=== PATIENT | male | born 1965 | race Caucasian/White ===

== ENCOUNTER 2022-11-29 09:18 | Outpatient (REF) | payer OTHER, SELFPAY ==
[2022-11-29 11:51] LABS: Estimated Average Glucose 123 mg/dL; Hemoglobin A1c % 5.9 %
[2022-11-29 12:47] LABS: Cholesterol 226 mg/dL; HDL Cholesterol 43 mg/dL; LDL Cholesterol Calculated 166 mg/dl; Triglycerides 89 mg/dL
== END 2022-11-29 09:19 | disposition home or self-care (01) ==
LOC: HO.HHCL 09:18
PROVIDERS: Visit Provider Internal Medicine Geriatric Medicine
DX: Z12.11 Encounter for screening for malignant neoplasm of colon (principal); Z12.5 Encounter for screening for malignant neoplasm of prostate; Z13.220 Encounter for screening for lipoid disorders; R07.9 Chest pain, unspecified; E66.9 Obesity, unspecified
CPT/HCPCS: 36415; 80061; 83036; 84153

== ENCOUNTER 2023-03-22 12:29 | Outpatient (REF) | payer OTHER, SELFPAY ==
[2023-03-22 13:13] LABS: MANUAL DIFF FLAG NO
[2023-03-22 13:26] LABS: Basophils Absolute Auto 0.1 X10*3/uL (0.0-0.2); Basophils Percent Auto 0.9 % (0-2); Eosinophils Absolute Auto 0.2 X10*3/uL (0.0-0.4); Eosinophils Percent Auto 3.4 % (0-4); Hematocrit 44.5 % (42.0-52.0); Hemoglobin 13.7 g/dl (14.0-18.0); Imm Gran Abs Auto 0.01 X10*3/uL (0.00-0.03); Imm Gran Pct Auto 0.2 % (0.0-0.4); Lymphocytes Absolute Auto 2.3 X10*3/uL (1.2-4.9); Lymphocytes Percent Auto 35.1 % (20-40); Mean Corpuscular HGB Conc 30.8 g/dl (31.0-36.0); Mean Corpuscular Volume 81.1 fL (80.0-98.0); Monocytes Absolute Auto 0.5 X10*3/uL (0.1-1.2); Monocytes Percent Auto 7.8 % (2-11); Neutrophils Absolute Auto 3.4 x10*3/uL (2.0-8.3); Neutrophils Percent Auto 52.6 % (45-73); Platelet Count 238 X10*3/uL (160-400); Red Blood Count 5.49 X10*6/uL (4.60-5.80); Red Cell Distribution Width 15.7 % (11.0-16.0); White Blood Count 6.5 X10*3/uL (4.8-10.8)
[2023-03-22 14:04] LABS: Alanine Aminotransferase 22 U/L (0-40); Alkaline Phosphatase 84 U/L (39-117); Anion Gap 11 (12-20); Aspartate Amino Transferase 23 U/L (5-37); Bilirubin Total 0.5 mg/dL (0.0-1.0); Blood Urea Nitrogen 15 mg/dL (9-16); Calcium 9.1 mg/dL (8.4-10.2); Carbon Dioxide 25 mmol/L (22-29); Chloride 107 mmol/L (96-108); Estimated Glomerular Filt Rate > 60; Glucose Random 102 mg/dL (60-115); Potassium 4.9 mmol/L (3.3-5.1); Sodium 138 mmol/L (135-145); Total Protein 7.1 g/dL (6.5-8.0)
== END 2023-03-22 12:30 | disposition home or self-care (01) ==
LOC: HO.HHCL 12:29
PROVIDERS: Visit Provider Internal Medicine Geriatric Medicine
DX: Z79.1 Long term (current) use of non-steroidal anti-inflammatories (NSAID) (principal)
CPT/HCPCS: 36415; 80053; 85025

== ENCOUNTER 2023-09-28 13:24 | Outpatient (REF) | payer OTHER, SELFPAY ==
[2023-09-28 16:35] LABS: Cholesterol 177 mg/dL (<200); HDL Cholesterol 42 mg/dL (>40); LDL Cholesterol Calculated 120 mg/dL (<100); Triglycerides 75 mg/dL (<150)
== END 2023-09-28 13:25 | disposition home or self-care (01) ==
LOC: HO.HHCL 13:24
PROVIDERS: Visit Provider Internal Medicine Geriatric Medicine
DX: E78.00 Pure hypercholesterolemia, unspecified (principal)
CPT/HCPCS: 36415; 80061

== ENCOUNTER 2023-11-30 10:26 | Outpatient (REF) | payer OTHER, SELFPAY ==
[2023-11-30 13:07] LABS: MANUAL DIFF FLAG NO
[2023-11-30 13:20] LABS: Basophils Percent Auto 0.7 % (0-2); Eosinophils Absolute Auto 0.1 X10*3/uL (0.0-0.4); Eosinophils Percent Auto 2.3 % (0-4); Hematocrit 46.4 % (42.0-52.0); Hemoglobin 14.5 g/dl (14.0-18.0); Imm Gran Abs Auto 0.01 X10*3/uL (0.00-0.03); Imm Gran Pct Auto 0.2 % (0.0-0.4); Lymphocytes Absolute Auto 1.8 X10*3/uL (1.2-4.9); Lymphocytes Percent Auto 29.2 % (20-40); Mean Corpuscular HGB Conc 31.3 g/dl (31.0-36.0); Mean Corpuscular Hemoglobin 25.3 pg (27.0-33.0); Mean Corpuscular Volume 80.8 fL (80.0-98.0); Mean Platelet Volume 10.6 fL (9.4-12.4); Monocytes Absolute Auto 0.4 X10*3/uL (0.1-1.2); Monocytes Percent Auto 7.3 % (2-11); Neutrophils Absolute Auto 3.6 x10*3/uL (2.0-8.3); Neutrophils Percent Auto 60.3 % (45-73); Platelet Count 272 X10*3/uL (160-400); Red Blood Count 5.74 X10*6/uL (4.60-5.80)
[2023-11-30 20:54] LABS: Anion Gap 14 (12-20); Blood Urea Nitrogen 16 mg/dL (9-16); Calcium 9.4 mg/dL (8.4-10.2); Carbon Dioxide 24 mmol/L (22-29); Chloride 108 mmol/L (96-108); Estimated Glomerular Filt Rate > 60; Glucose Random 100 mg/dL (60-115); Potassium 4.7 mmol/L (3.3-5.1); Sodium 141 mmol/L (135-145)
[2023-12-01 02:02] LABS: Prostate Specific Antigen 0.66 ng/mL (<0.05-4.0)
[2023-12-01 03:58] LABS: HIV AB/AG Nonreactive (Nonreactive); HIV Num 1 0.06 S/CO (0.00-0.99); ~HepC Num1 0.13 S/CO (0.00-0.79); ~Hepatitis C Antibody Nonreactive (Nonreactive)
== END 2023-11-30 10:27 | disposition home or self-care (01) ==
LOC: HO.HMGCLDS 10:26
PROVIDERS: Visit Provider Internal Medicine Geriatric Medicine
DX: Z11.4 Encounter for screening for human immunodeficiency virus [HIV] (principal); Z11.59 Encounter for screening for other viral diseases; Z12.5 Encounter for screening for malignant neoplasm of prostate; Z79.1 Long term (current) use of non-steroidal anti-inflammatories (NSAID)
CPT/HCPCS: 36415; 80048; 84153; 85025; 86803; 87389

== ENCOUNTER 2024-07-25 13:25 | Outpatient (REF) | payer OTHER, SELFPAY ==
--- OUTSIDE RECORDS SUMMARY | 2024-07-25 15:01 | XMS_ITS | Encounter Summary ---
Author Organization [employer] Address 75 [facility] 7t [place] [address] Care Team Providers Care Dining Room Server Name Role Phone Name, Oumar PÉREZ Primary Care Provider [phone] Encounter Details Date Type Department Care Team (Latest Contact Info) Description 08/12/2020 Abstract [facility] CONVERSIONS Dental, Provider, DDS Social History Tobacco Use Types Packs/Day Years Used Date Smoking Tobacco: Never Assessed Sex and Gender Information Value Date Recorded Sex Assigned at Male 03/13/2022 10:15 AM EDT Legal Sex Male 10:15 AM EDT Gender Identity Male 03/13/2022 10:15 AM EDT Sexual Orientation Straight 03/13/2022 10 :15 AM EDT documented as of this encounter Plan of Treatment Upcoming Encounters Date Type Department Care Team (Late st Contact Info) Description 07/30/2024 11:30 AM EDT Office Visit [facility] MEDICINE [address] [place] [address] NameOumar MD [address] [place] [address] 10/20/2024 11:00 AM EDT Office Visit [facility] ADULT DENTAL [address] [place] [address] Sheila Resendiz [address] [place] [address] documented as of this encounter Visit Diagnoses Not on filedocumented in this encounter Care Teams Dining Room Server Relationship Specialty Start Date End Date Name, MD Oumar [address] [place] [address] PCP - General Family Medicine 06/18/17 documented as of this encounter
--- OUTSIDE RECORDS SUMMARY | 2024-07-25 15:01 | XMS_ITS | Encounter Summary ---
Author Organization [employer] Address [address] [facility] 7t [place] [address] Care Team Providers Care Naphthalene Operator Name Role Phone Name, Oumar PÉREZ Primary Care Provider [phone] Encounter Details Date Type Department Care Team (Late st Contact Info) Description 12/26/2022 Abstract [facility] MEDICINE [address] [place] [address] [phone] NameOumar MD [address] [place] [address] [phone] Social History Tobacco Use Types Packs/Day Years Used Date Smoking Tobacco: Never Passive Smoke Exposure: Never Smokeless Tobacco: Never Alcohol Use Standard Drinks/Week Comments Yes 0 (1 standard drink = 0.6 oz pur e alcohol) occassional Depression Answer Date Recorded Patient Health Questionnaire-9 Score 13 11/29/2022 Depression Answer Date Recorded Patient Health Questionnaire-2 Score 6 11/29/2022 Sex and Gender Information Value Date Recorded Sex Assigned at Male 03/13/2022 10:15 AM EDT Legal Sex Male 10:15 AM EDT Gender Identity Male 03/13/2022 10:15 AM EDT Sexual Orientation Straight 03/13/2022 10 :15 AM EDT documented as of this encounter Plan of Treatment Upcoming Encounters Date Type Department Care Team (Late st Contact Info) Description 07/30/2024 11:30 AM EDT Office Visit [facility] MEDICINE [address] [place] [address] [phone] Name, MD Oumar [address] [place] [address] [phone] 10/20/2024 11:00 AM EDT Office Visit [facility] ADULT DENTAL [address] [place] [address] Sheila Resendiz [address] [place] [address] documented as of this encounter Visit Diagnoses Not on filedocumented in this encounter Additional Health Concerns Assessment Noted Time PHQ-9 Depression Total Score: 13 023 8:42 AM EDT documented as of this encounter Care Teams Naphthalene Operator Relationship Specialty Start Date End Date Name, MD Oumar [address] [place] [address] PCP - General Family Medicine 06/18/17 documented as of this encounter
--- OUTSIDE RECORDS SUMMARY | 2024-07-25 15:01 | XMS_ITS | Encounter Summary ---
Author Organization [employer] Address 75 [facility] 7t [place] [address] Care Team Providers Care Patient Safety Coordinator Name Role Phone Name, Oumar PÉREZ Primary Care Provider [phone] Reason for Referral * Imaging (Routine) - Authorized Specialty Diagnoses / Procedures Referred By Contac t Referred To Contact Radiology Diagnoses Umbilical bleeding Procedures US Abdomen Limited Ban Durand ANP [address] [place] [address] Phone: tel: fax: [address] Phone: tel: fax: Referral ID Status Reason Start Date Expiration Date V isits Requested Visits Authorized [id number] Authorized 07/25/2024 07/25/2025 1 1 Reason for Visit * Reason Comments belly button bleeding Encounter Details Date Type Department Care Team (Late st Contact Info) Description 07/25/2024 1:00 PM EDT Office Visit [facility] [address] [place], [place] [phone] Umbilical bleeding (Primary Dx) Social History Tobacco Use Types Packs/Day Years Used Date Smoking Tobacco: Never Passive Smoke Exposure: Never Smokeless Tobacco: Never Alcohol Use Standard Drinks/Week Comments Yes 0 (1 standard drink = 0.6 oz pur e alcohol) occassional Depression Answer Date Recorded Patient Health Questionnaire-9 Score 0 2023 Patient Health Questionnaire-9 Score 0 2023 Last PHQ-9: Questionnaire Data Not on file 0 2023 Housing Stability Answer Date Recorded What is your housing situation today? I have pelon lozano 03/21/[address] you li ve. Do you have problems with any of the following? None of the above 03/21/2023 Food Insecurity Answer Date Recorded Within the past 12 months, y ou worried that your food would run out before you got money to buy more: Never True 03/21/2023 Within the past 12 months,th e food you bought just didn't last and you didn't have enough money to get more: Never True 12/2022 Transportation Answer Date Recorded In the past 12 months, has l ack of transportation kept you from medical appts, meetings, work or from getting things needed for daily living? No 03/21/2023 Utilities Answer Date Recorded In the past 12 months, has t he electric, gas, oil or water company threatened to shut off services in your home? No 03/21/2023 Depression Answer Date Recorded Patient Health Questionnaire-2 Score 0 2023 Internet Access Answer Date Recorded Internet Access Q1 Yes 01/14/2024 Internet Access Q2 Not on file 01/14/2024 Sex and Gender Information Value Date Recorded Sex Assigned at Male 03/13/2022 10:15 AM EDT Legal Sex Male 10:15 AM EDT Gender Identity Male 03/13/2022 10:15 AM EDT Sexual Orientation Straight 03/13/2022 10 :15 AM EDT documented as of this encounter Last Filed Vital Signs Vital Sign Reading Time Taken Comments Blood Pressure 136/87 07/25/2024 1:01 PM EDT Pulse 58 07/25/2024 1:01 PM EDT Temperature 36.7 ??C (98.1 ??F) 07/25/2024 1:01 PM ED T Respiratory Rate 17 07/25/2024 1:01 PM EDT Oxygen Saturation 98% 07/25/2024 1:01 PM EDT Inhaled Oxygen Concentration - - Weight 121 kg (266 lb 3.2 oz) 07/25/2024 1:01 PM EDT Height - - Body Mass Index 41.69 01/01/2024 10:41 AM EDT documented in this encounter Plan of Treatment Upcoming Encounters Date Type Department Care Team (Late st Contact Info) Description 07/30/2024 11:30 AM EDT Office Visit [facility] MEDICINE [address] [place] [address] Name, MD Oumar [address] [facility] [place] [address] 10/20/2024 11:00 AM EDT Office Visit [facility] ADULT DENTAL [address] [place] [address] MartínSheila rodrigez [address] [place] [address] Scheduled Orders Name Type Priority Associated Diagnoses Orde r Schedule Prothrombin Time-INR Lab Routine Umbilical bleeding Expected: 07/25/2024, Expires: 07/25/2025 Hepatic Function Panel Lab Routine Umbilical bleeding Expected: 07/25/2024 (Approximate), Expires: 07/25/2025 Basic Metabolic Panel Lab Routine Umbilical bleeding Expected: 07/25/2024 (Approximate), Expires: 07/25/2025 US Abdomen Limited Imaging Routine Umbilical bleeding Expected: 07/25/2024, Expires: 07/25/2025 CBC auto differential Lab Routine Umbilical bleeding Expected: 07/25/2024 (Approximate), Expires: 07/25/2025 documented as of this encounter Visit Diagnoses Diagnosis Umbilical bleeding- Primary Other symptoms involving abdomen and pelvis documented in this encounter Additional Health Concerns Assessment Noted Time PHQ-9 Depression Total Score: 0 08/29/19 24 11:17 AM EDT documented as of this encounter Care Teams Patient Safety Coordinator Relationship Specialty Start Date End Date Name, MD Oumar [address] [place] [address] PCP - General Family Medicine 06/18/17 documented as of this encounter
--- OUTSIDE RECORDS SUMMARY | 2024-07-25 15:01 | XMS_ITS | Clinical Summary ---
Author Organization [employer] Address 75 [facility] 7t [place] [address] Care Team Providers Care Wool Grower Name Role Phone Name, Oumar PÉREZ Primary Care Provider [phone] Allergies No known active allergies Medications amoxicillin (Amoxil) 500 MG capsule TAKE 4 CAPSULES BY MOUTH 1 HOUR BEFORE PROCEDURE 2 Active fluticasone (Flonase) 50 MCG/ACT nasal sprayIndication s:Acute non-recurrent maxillary sinusitis Administer 1 spray into each nostril Once per day. 16 g 2 4 Active Active Problems Problem Noted Date Diagnosed Date Dental calculus 04/21/2024 Acute non-recurrent maxillary sinusitis 01/01/20 24 Assessment & Plan (01/01/2024 12:20 PM EDT): Drink plenty of fluids and rest History of right hip replacement 2023 Overview (2023): 09/[address] Grey Osteoarthritis of right hip 01/11/2018 Osteoarthritis of knee 01/11/2018 Knee pain 01/08/2018 Chorioretinal scar 10/03/2017 Meibomian gland dysfunction (MGD) of both eyes 0 10/03/2017 Obesity (BMI 30-39.9) 07/13/2017 Resolved Problems Problem Noted Date Diagnosed Date Resolved Date Hip pain 01/08/2018 2023 Encounters Date Type Department Care Team Description 07/25/2024 1:00 PM EDT Office Visit [facility] [address] [place], [place] [phone] Umbilical bleeding (Primary Dx) 07/25/2024 Travel 05/19/2024 Telephone [facility] MEDICINE [address] [place] [address] Mason Tariq [place] july recalls 05/12/2024 Telephone [facility] MED[facility] [address] [place] [address] Mason Tariq [place] jun recalls from Last 3 Months Immunizations Name Administration Dates Next Due Influenza Injectable Quadriv alant Preservative Free IIV4 MDCK 02/06/2023,01/26/2022,01/27/2021,2019 Influenza injectable quadriv alent IIV4 with preservative 01/23/2018 Influenza, seasonal, injecta ble, preservative free 01/23/2024 Tdap 01/19/2023 Social History Tobacco Use Types Packs/Day Years Used Date Smoking Tobacco: Never Passive Smoke Exposure: Never Smokeless Tobacco: Never Tobacco Cessation:Counseling Given: Not Answered Alcohol Use Standard Drinks/Week Comments Yes 0 (1 standard drink = 0.6 oz pur e alcohol) occassional Depression Answer Date Recorded Patient Health Questionnaire-9 Score 0 2023 Patient Health Questionnaire-9 Score 0 2023 Last PHQ-9: Questionnaire Data Not on file 0 2023 Housing Stability Answer Date Recorded What is your housing situation today? I have pelonchristian lozano 03/21/[address] you [...] Orientation Straight 03/13/2022 10 :15 AM EDT Last Filed Vital Signs Vital Sign Reading [...] 3.2 oz) 07/25/2024 1:01 PM EDT Height 170.2 cm (5' 7 ) 01/01/2024 10:41 AM EDT Body Mass Index 41.69 01/01/2024 10:41 AM EDT Plan of Treatment Upcoming Encounters Date Type Department Care Team (Late st Contact Info) Description 07/30/2024 11:30 AM EDT Office Visit [facility] MEDICINE [address] [place] [phone] Name, MD Oumar [address] [place] [address] 10/20/2024 11:00 AM EDT Office Visit [facility] ADULT DENTAL [address] [place] [address] Sheila Resendiz [address] [place] [address] Health Maintenance Due Date Last Done Comments CT Colonography 1963 Colonoscopy 1963 Dental X-Ray: Full Mouth 1963 FIT 1963 Sigmoidoscopy 1965 Pneumococcal Vaccine: 50+ Years (1 of 1 - PCV) 08/28/2013 Zoster Vaccines (1 of 2) 08/28/2013 Dental Oral Exam 02/12/2021 08/12/2020 Dental X-Ray: Bitewings 08/13/2021 08/12/2020 Dental Prophylaxis 09/13/2022 03/15/2022, 0 08/12/2020, 08/15/2018, Additional history exists RSV Patients and Patients Aged 60 years or older (1 - Risk 60-74 years 1-dose series) 2023 FOBT 12/15/2023 12/14/2022 COVID-19 Vaccine ( season) 2024 04/04/2021, 06/08/2020, 05/11/2020 Depression Screening 08/28/2024 2023, 08/29/19 SDOH Screening 11/22/2024 11/23/2023 Alcohol/Substance Use Screening 11/29/2024 11/30/2023 Tobacco Screening 07/25/2025 07/25/2024 Colorectal Cancer Screening 12/14/2025 FIT DNA/Cologuard 12/14/2025 12/14/2022 Lipid Panel 09/27/2028 09/28/2023, 11/29/2022 DTaP/Tdap/Td Vaccines (2 - Td or Tdap) 01/19/2033 01/19/2023 HIV Screening Completed 11/30/2023 Hepatitis C Screening Completed 11/30/2023 Influenza Vaccine Completed 01/23/2024, , 01/26/2022, Additional history exists HIB Vaccines Aged Out No longer eligi ble based on patient's age to complete this topic HPV Vaccines Aged Out No longer eligi ble based on patient's age to complete this topic Hepatitis A Vaccines Aged Out No long er eligible based on patient's age to complete this topic Hepatitis B Vaccines Aged Out No long er eligible based on patient's age to complete this topic IPV Vaccines Aged Out No longer eligi ble based on patient's age to complete this topic Meningococcal Vaccine Aged Out No shonda nellie eligible based on patient's age to complete this topic RSV under 20 months Aged Out No longe r eligible based on patient's age to complete this topic Rotavirus Vaccines Aged Out No longer eligible based on patient's age to complete this topic Procedures Procedure Name Priority Date/Time Associated Diagnosis Comments HEPATITIS C AB W/REFL TO HCV RNA, QN, PCR Routine 11/30/2023 10:29 AM EDT Need for hepatitis C screening test HIV 1/2 ANTIGEN/ANTIBODY, FOURTH GENERATION W/RFL Routine 11/30/2023 10:29 AM EDT Screening for HIV (human immunodeficiency virus) LIPID PANEL, STANDARD Routine 09/28/2023 1:15 PM EDT High cholesterol HM FIT DNA/COLOGUARD CANCER SCREENING Routine 12/14/2022 PROPHYLAXIS - ADULT Routine 03/15/2022 1 2:00 AM EDT BITEWINGS - 3 RADIOGRAPHIC IMAGES Routine 08/12/2020 12:00 AM EDT PERIODIC ORAL EVALUATION - ESTABLISHED PATIENT Routine 08/12/2020 12:00 AM EDT from Last 3 Months or Most Recently Relevant to Health Maintenance Results * Hepatitis C Antibody with Reflex to HCV, RNA, Quantitative, Real-Time PCR (11/30/2023 10:29 AM EDT) Hepatitis C Antibody Nonreactive Nonreactive [facility] Comment:Antibodies to HCV no t detected; does not exclude early acuteHCV infection. Blood Venous blood specimen / Unknown 11/30/2023 10:29 AM EDT 11/30/2023 1:01 PM EDT Oumar Blas MD LAB BLOOD ORDERABLES Final Resul t [facility] [address] [place] [phone] * HIV-1/2 Antigen and Antibodies, Fourth Generation, with Reflexes (11/30/2023 10:29 AM EDT) HIV AB/AG Nonreactive Nonreactive [facility] Comment:HIV-1 p24 Ag and/or HIV-1/HIV-2 Ab not detected.A test result that is nonreactive does not exclude thepossibility of exposure to or infection with HIV-1 and/orHIV-2. Nonreactive results in this assay for individualswith prior exposure to HIV-1 and/or HIV-2 may be due toantigen and antibody levels that are below the limit ofdetection of this assay.The [employer] HIV Ag/Ab Combo assay result andsupplemental assay results should be interpreted inconjunction with the patient's clinical presentation,history and other laboratory results. If the results areinconsistent with clinical evidence, additional testing issuggested to confirm the result. Blood Venous blood specimen / Unknown 11/30/2023 10:29 AM EDT 11/30/2023 1:01 PM EDT us Oumar Blas MD LAB BLOOD ORDERABLES Final Resul t [facility] [address] [place] [phone] * (ABNORMAL) Lipid Panel, Standard (09/28/2023 1:15 PM EDT) Triglycerides 75 <150 mg/dL [facility] Comment:Desirable Triglyceri de: less than 150 mg/dLBorderline High Triglyceride 150-199 mg/dLHigh Triglyceride: 200-499 mg/dLVery High Triglyceride: greater than or equal to 5OO mg/dL Cholesterol 177 <200 mg/dL [facility] Comment:Desirable Cholestero l: less than 200 mg/dLBorderline High Cholesterol: 200-239 mg/dLHigh Cholesterol: greater than 239 mg/dL LDL Cholesterol Calculated 120(H) <100 mg/dL [facility] Comment:Desirable LDL: less than 100 mg/dLNear Optimal/Above Optimal LDL: 110- 129 mg/dLBorderline High LDL: 130-159 mg/dLHigh LDL: 160-189 mg/dLVery High LDL: greater than or equal to 190 mg/dL HDL Cholesterol 42 >40 mg/dL [facility] Comment:Desirable HDL: great er than 40 mg/dL Note: This HDL assay may give artificially low results in patients with liver disease. Blood Venous blood specimen / Unknown 09/28/2023 1:15 PM EDT 09/28/2023 4:07 PM EDT us Oumar Blas MD LAB BLOOD ORDERABLES Final Resul t [facility] [address] [place] [phone] * FIT DNA/Cologuard Cancer Screening (12/14/2022) Cologuard Cancer Screen Negative Stool Oumar Blas MD HEALTH MAINTENANCE Final Result from Last 3 Months or Most Recently Relevant to Health Maintenance Insurance [facility] , [address] [place] [address] Care Teams Wool Grower Relationship Specialty Start Date End Date Name, MD Oumar [address] [facility] [place] [address] PCP - General Family Medicine 06/18/17
--- OUTSIDE RECORDS SUMMARY | 2024-07-25 15:01 | XMS_ITS | Encounter Summary ---
Author Organization [employer] Address [address] [facility] 7t [place] [address] Care Team Providers Care Stock Speculator Name Role Phone Name, Oumar PÉREZ Primary Care Provider [phone] Encounter Details Date Type Department Care Team (Latest Contact Info) Description 07/25/2024 Travel Social History Tobacco Use Types Packs/Day Years [...] Description 07/30/2024 11:30 AM EDT Office Visit [facility] MEDICINE [address] [place] [address] Name, MD Oumar [address] [place] [address] 10/20/2024 11:00 AM EDT Office Visit [facility] ADULT DENTAL [address] [place] [address] Sheila Resendiz [address] [place] [address] documented as of this encounter Visit Diagnoses Not on filedocumented in this encounter Additional Health Concerns Assessment Noted Time PHQ-9 Depression Total Score: 0 08/29/19 24 11:17 AM EDT documented as of this encounter Care Teams Stock Speculator Relationship Specialty Start Date End Date NameOumar MD [address] [place] [phone] PCP - General Family Medicine 06/18/17 documented as of this encounter
[2024-07-25 16:31] LABS: MANUAL DIFF FLAG NO
[2024-07-25 16:34] LABS: Basophils Percent Auto 0.6 % (0-2); Eosinophils Absolute Auto 0.2 X10*3/uL (0.0-0.4); Eosinophils Percent Auto 2.8 % (0-4); Hematocrit 44.1 % (42.0-52.0); Hemoglobin 14.2 g/dl (14.0-18.0); Imm Gran Abs Auto 0.03 X10*3/uL (0.00-0.03); Imm Gran Pct Auto 0.4 % (0.0-0.4); Lymphocytes Absolute Auto 2.4 X10*3/uL (1.2-4.9); Lymphocytes Percent Auto 33.2 % (20-40); Mean Corpuscular HGB Conc 32.2 g/dl (31.0-36.0); Mean Corpuscular Hemoglobin 25.7 pg (27.0-33.0); Mean Corpuscular Volume 79.7 fL (80.0-98.0); Mean Platelet Volume 10.2 fL (9.4-12.4); Monocytes Absolute Auto 0.6 X10*3/uL (0.1-1.2); Monocytes Percent Auto 8.4 % (2-11); Neutrophils Percent Auto 54.6 % (45-73); Platelet Count 276 X10*3/uL (160-400); Red Blood Count 5.53 X10*6/uL (4.60-5.80); Red Cell Distribution Width 15.3 % (11.0-16.0); White Blood Count 7.3 X10*3/uL (4.8-10.8)
[2024-07-25 16:41] LABS: INTERNATIONAL NORM RATIO 0.9 (0.9-1.1); Prothrombin Time 10.4 SEC (10.9-12.4)
[2024-07-25 17:11] LABS: Alanine Aminotransferase 27 U/L (0-40); Alkaline Phosphatase 87 U/L (39-117); Anion Gap 9 (12-20); Aspartate Amino Transferase 25 U/L (5-37); Bilirubin Direct 0.1 mg/dL (0.0-0.5); Bilirubin Total 0.3 mg/dL (0.0-1.0); Blood Urea Nitrogen 18 mg/dL (9-16); Calcium 9.1 mg/dL (8.4-10.2); Carbon Dioxide 25 mmol/L (22-29); Chloride 109 mmol/L (96-108); Estimated Glomerular Filt Rate > 60; Glucose Random 105 mg/dL (60-115); Potassium 4.3 mmol/L (3.3-5.1); Sodium 139 mmol/L (135-145); Total Protein 7.3 g/dL (6.5-8.0)
== END 2024-07-25 13:26 | disposition home or self-care (01) ==
LOC: HO.HHCL 13:25
PROVIDERS: Visit Provider Nurse Practitioner Primary Care
DX: R19.8 Other specified symptoms and signs involving the digestive system and abdomen (principal)
CPT/HCPCS: 36415; 80048; 80076; 85025; 85610

== ENCOUNTER 2024-10-03 10:07 | Outpatient (REF) | payer OTHER, SELFPAY ==
--- OUTSIDE RECORDS SUMMARY | 2024-10-03 10:22 | XMS_ITS | Encounter Summary ---
Author Organization [facility] Address [address] [facility] 7t [place] [address] Care Team Providers Care Tankroom Tender Name Role Phone Name, Oumar PÉREZ Primary Care Provider [phone] Encounter Details Date Type Department Care Team (Latest Contact Info) Description 08/12/2020 Abstract [facility] CONVERSIONS Dental, Provider, DDS Social History Tobacco [...] Upcoming Encounters Date Type Department Care Team ( st Contact Info) Description 10/20/2024 11:00 AM EDT Office Visit [facility] ADULT DENTAL [address] [place] [address] Martín Sheila [address] [place] [address] 12/19/2024 10:30 AM EDT Office Visit [facility] MEDICINE [address] [place] [address] NameOumar MD [address] [place] [address] documented as of this encounter Visit Diagnoses Not on filedocumented in this encounter Care Teams Tankroom Tender Relationship Specialty Start Date End Date NameOumar MD [address] [place] [address] PCP - General Family Medicine 06/18/17 documented as of this encounter
== END 2024-10-03 10:08 | disposition home or self-care (01) ==
LOC: HO.US 10:07
PROVIDERS: PCP Internal Medicine Geriatric Medicine; Visit Provider Nurse Practitioner Primary Care
DX: R19.8 Other specified symptoms and signs involving the digestive system and abdomen (principal)
CPT/HCPCS: 76705

== ENCOUNTER → 2024-10-03 10:10 | Outpatient (BNV) | payer OTHER, SELFPAY | PROVIDERS: PCP Internal Medicine Geriatric Medicine; Visit Provider Radiology Diagnostic Radiology | DX: R19.8 Other specified symptoms and signs involving the digestive system and abdomen (principal) | CPT/HCPCS: 76705 ==

== ENCOUNTER 2025-01-20 10:52 | Outpatient (REF) | payer OTHER, SELFPAY ==
--- OUTSIDE RECORDS SUMMARY | 2025-01-19 15:45 | XMS_ITS | Encounter Summary ---
Author Organization [employer] Address [address] [facility] 7t [place] [address] Care Team Providers Care Vulnerability Researcher Name Role Phone Name, Oumar PÉREZ Primary Care Provider [phone] Reason for Visit * Reason Comments Cough Encounter Details Date Type Department Care Team ([facility] Contact Info) Description 01/19/2025 3:45 PM EDT Office Visit [facility] [address] [place], [place] [phone] Name, MD Oumar [address] [place] [address] Cough in adult (Primary Dx); Wheezing; Rhonchi at both lung bases Social History Tobacco Use Types Packs/Day Years [...] Sign Reading Time Taken Comments Blood Pressure 132/72 01/19/2025 3:46 PM EDT Pulse 87 01/19/2025 3:46 PM EDT Temperature 36.7 C (98 F) 01/19/2025 3:46 PM EDT Respiratory Rate 12 01/19/2025 3:46 PM EDT Oxygen Saturation 98% 01/19/2025 3:46 PM EDT Inhaled Oxygen Concentration - - Weight 122 kg (269 lb 12.8 oz) 01/19/2025 3:46 P M EDT Height 170.2 cm (5' 7 ) 01/19/2025 3:46 PM EDT Body Mass Index 42.26 01/19/2025 3:46 PM EDT documented in this encounter Progress Notes * Oumar Blas MD - 01/19/2025 3:45 PM EDT Subjective Patient ID: Harmeet Mercado is a 59 y.o. male who presents for Cough. Patient comes for a sick visit complaining of 1 week of cough, wheezing, rhonchi, chest congestion.Symptoms started with runny nose, mild headaches and sore throat that resolved but then the cough started. He has tried cnby-wkd-drmxeaw cough remedies without symptomatic improvement. He denies sick contacts at home, no fevers or chills, no sinus pain, no purulent rhinorrhea, no more sore throat. He was never asthmatic and was never a smoker. He does not recall having similar symptoms in the past. Review of Systems Constitutional: Negative for chills, fatigue and fever. HENT: Negative for rhinorrhea, sinus pain and sore throat. Respiratory: Positive for cough, chest tightness and wheezing. Negative for shortness of breath. Cardiovascular: Negative for chest pain, palpitations and leg swelling. Gastrointestinal: Negative for abdominal pain and blood in stool. Objective Vitals: 01/19/25 1546 BP: 132/72 BP Location: Left arm Patient Position: Sitting BP Cuff Size: Large adult Pulse: 87 Resp: 12 Temp: 98 ??F (36.7 ??C) TempSrc: Temporal SpO2: 98% Weight: 269 lb 12.8 oz (122 kg) Height: 5' 7 (1.702 m) Physical Exam Constitutional: General: He is not in acute distress. Appearance: Normal appearance. He is not ill-appearing or toxic-appearing. Cardiovascular: Rate and Rhythm: Normal rate and regular rhythm. Heart sounds: No murmur heard. Pulmonary: Effort: Pulmonary effort is normal. No respiratory distress. Breath sounds: Wheezing and rhonchi present. Abdominal: Palpations: Abdomen is soft. Musculoskeletal: Right lower leg: No edema. Left lower leg: No edema. Neurological: Mental Status: He is alert. Latest Reference Range & Units 01/19/25 15:49 01/19/25 15:54 Influenza A Negative, Indeterminate Negative Influenza B Negative, Indeterminate Negative Rapid COVID Ag Negative Assessment/Plan Diagnoses and all orders for this visit: Cough in adult Comments: I suspect viral bronchitis. Patient responded to albuterol updraft today. He is having wheezing on exam. I recommended trial of rescue albuterol and short course of prednisone, evaluation with chest x-ray. Further recommendation based on results and the patient response to today's treatments Orders: - POCT Rapid Covid-19 BinaxNOW - POCT Rapid Influenza A SALAZAR ID NOW - POCT Rapid Influenza B SALAZAR ID NOW - albuterol (2.5 MG/3ML) 0.083% nebulizer solution 2.5 mg - albuterol 108 (90 Base) MCG/ACT inhaler; Inhale 2 puffs if needed in the morning, at noon, and atbedtime for wheezing or shortness of breath. - XR Chest 2 Views; Future Wheezing - albuterol (2.5 MG/3ML) 0.083% nebulizer solution 2.5 mg - albuterol 108 (90 Base) MCG/ACT inhaler; Inhale 2 puffs if needed in the morning, at noon, and atbedtime for wheezing or shortness of breath. - XR Chest 2 Views; Future Rhonchi at both lung bases - albuterol (2.5 MG/3ML) 0.083% nebulizer solution 2.5 mg - albuterol 108 (90 Base) MCG/ACT inhaler; Inhale 2 puffs if needed in the morning, at noon, and atbedtime for wheezing or shortness of breath. - XR Chest 2 Views; Future Other orders - predniSONE (Deltasone) 20 MG tablet; Take 2 tablets (40 mg) by mouth Once per day for 5 days. Future Appointments Date Time Provider Department Center 01/20/2025 2:00 PM Oumar Blas MD MEDICINE [facility] documented in this encounter Plan of Treatment Upcoming Encounters Date Type Department Care Team (Late st Contact Info) Description 01/20/2025 2:00 PM EDT Office Visit [facility] [address] [place] [address] Oumar Blas MD [address] [place] [phone] Scheduled Orders Name Type Priority Associated Diagnoses Orde r Schedule XR Chest 2 Views Imaging Routine Cough in adult Wheezing Rhonchi at both lung bases Expected: 01/19/2025, Expires: 01/19/2026 documented as of this encounter Procedures Procedure Name Priority Date/Time Associated Diagnosis Comments POCT INFLUENZA B (ID NOW RAPID MOLECULAR) Routine 01/19/2025 3:54 PM EDT Cough in adult POCT INFLUENZA A (ID NOW RAPID MOLECULAR) Routine 01/19/2025 3:54 PM EDT Cough in adult POCT RAPID COVID ANTIGEN Routine 01/19/2025 3:49 PM EDT Cough in adult documented in this encounter Results * POCT Rapid Influenza B SALAZAR ID NOW (01/19/2025 3:54 PM EDT) Pathologist [facility] Influenza B Negative Negative, Indeterminate [facility] QC Media Lot # [id number] [facility] Lot# Expiration Date 100,826 [facility] Swab 01/19/2025 3:54 PM EDT us Oumar Blas MD POINT OF CARE TEST ENTER/EDIT OR DERABLES Final Result Performing Organization Address [facility]/ZIP Co de Phone Number [facility] [address] [place] [phone] * POCT Rapid Influenza A SALAZAR ID NOW (01/19/2025 3:54 PM EDT) Pathologist [facility] Influenza A Negative Negative, Indeterminate [facility] QC Media Lot # [id number] [facility] Lot# Expiration Date 100,826 [facility] Swab 01/19/2025 3:54 PM EDT us Oumar Blas MD POINT OF CARE TEST ENTER/EDIT OR DERABLES Final Result Performing Organization Address [facility]/ZIP Co de Phone Number [facility] [address] [place] [phone] * POCT Rapid Covid-19 BinaxNOW (01/19/2025 3:49 PM EDT) Rapid COVID Ag Negative QC Media Lot # [id number] Lot# Expiration Date 63,026 Swab 01/19/2025 3:49 PM EDT us Oumar Blas MD POINT OF CARE TEST ENTER/EDIT OR DERABLES Final Result documented in this encounter Visit Diagnoses Diagnosis Cough in adult- Primary Wheezing Rhonchi at both lung bases documented in this encounter Administered Medications Inactive Administered Medications - up to 3 most recent administrations Medication Order MAR Action Action Date Dose Rate Site albuterol (2.5 MG/3ML) 0.083% nebulizer solution 2.5 mg 2.5 mg, Nebulization, Once, On Sun01/19/25 at 1600, For 1 doseIndications:Cough in adult,Wheezing,Rhonchi at both lung bases Given 01/19/2025 4:02 PM EDT 2.5 mg documented in this encounter Additional Health Concerns Assessment Noted Time PHQ-9 Depression Total Score: 0 08/29/19 24 11:17 AM EDT documented as of this encounter Care Teams Vulnerability Researcher Relationship Specialty Start Date End Date Name, MD Oumar [address] [place] [address] PCP - General Family Medicine 06/18/17 documented as of this encounter
--- NOTE | ~2025-01-20 | XR_ITS ---
EXAMINATION: XR CHEST CLINICAL INFORMATION: one week of cough, wheezing, ronchi COMPARISON: None available. TECHNIQUE: PA and lateral views FINDINGS: No consolidation, pleural fissure pneumothorax. Questionable 1 mm calcified nodule likely granuloma, right lower hemithorax. Cardiomediastinal silhouette size is normal. Multilevel spondylosis, axial skeleton. XR/XR chest 2V IMPRESSION: No acute airspace disease. Electronically signed by: Prabhu Ramsay MD 01/20/2025 01:09 PM EDT RP
--- OUTSIDE RECORDS SUMMARY | 2025-01-20 13:08 | XMS_ITS | Encounter Summary ---
Author Organization [employer] Address [address] [facility] 7t [place] [address] Care Team Providers Care Livestock Breeder Name Role Phone Name, Oumar PÉREZ Primary Care Provider [phone] Encounter Details Date Type Department Care Team (Latest Contact Info) Description 01/19/2025 Travel Social History Tobacco Use Types Packs/Day [...] Description 01/20/2025 2:00 PM EDT Office Visit [facility] [address] [place] [address] Name, MD Oumar [address] [place] [address] documented as of this encounter Visit Diagnoses Not on filedocumented in this encounter Additional Health Concerns Assessment Noted Time PHQ-9 Depression Total Score: 0 08/29/19 24 11:17 AM EDT documented as of this encounter Care Teams Livestock Breeder Relationship Specialty Start Date End Date Name, MD Oumar [address] [place] [phone] PCP - General Family Medicine 06/18/17 documented as of this encounter
--- OUTSIDE RECORDS SUMMARY | 2025-01-20 13:08 | XMS_ITS | Encounter Summary ---
Author Organization [employer] Address [address] [facility] [address] [place] [address] Care Team Providers Care Meter Tester Name Role Phone Name, Oumar PÉREZ Primary Care Provider [phone] Reason for Visit * Reason Onset Date Comments CHARTPREP 01/16/2025 Encounter Details Date Type Department Care Team ([facility] st Contact Info) Description 01/16/2025 Telephone [facility] [address] [place], [place] [phone] Name, MD Oumar [address] [place] [address] CHARTPREP Social History Tobacco Use Types Packs/Day Years [...] AM EDT documented as of this encounter Miscellaneous Notes * Telephone Encounter - Scott Marsh [place] - 01/16/2025 2:40 PM EDT Chart Prep Labs: done Images: done Referrals: complete Vaccines due: Covid, Flu, RSV, and Zoster Screenings: not applicable Overdue care gaps: SBIRT, SDOH, PHQ-9, DIOR-7, and Oral health screening documented in this encounter Plan of Treatment Upcoming Encounters Date Type Department Care Team (Late st Contact Info) Description 01/20/2025 2:00 PM EDT Office Visit [facility] [address] [place] [phone] NameOumar MD [address] [place] [address] documented as of this encounter Visit Diagnoses Not on filedocumented in this encounter Additional Health Concerns Assessment Noted Time PHQ-9 Depression Total Score: 0 08/29/19 24 11:17 AM EDT documented as of this encounter Care Teams Meter Tester Relationship Specialty Start Date End Date Oumar Blas MD [address] [place] [phone] PCP - General Family Medicine 06/18/17 documented as of this encounter
--- OUTSIDE RECORDS SUMMARY | 2025-01-20 13:08 | XMS_ITS | Encounter Summary ---
Author Organization [employer] [facility] Address [address] [facility] 7t [place] [address] Care Team Providers Care Bakery Worker Name Role Phone Name, Oumar PÉREZ Primary Care Provider [phone] Encounter Details Date Type Department Care Team (Latest Contact Info) Description 08/12/[address] [facility] CONVERSIONS Dental, Provider, DDS Social History [...] Description 01/20/2025 2:00 PM EDT Office Visit [facility] [address] [place] [address] Name, MD Oumar [address] [place] [address] documented as of this encounter Visit Diagnoses Not on filedocumented in this encounter Care Teams Bakery Worker Relationship Specialty Start Date End Date Name, MD Oumar [address] [place] [address] PCP - General Family Medicine 06/18/17 documented as of this encounter
--- OUTSIDE RECORDS SUMMARY | 2025-01-20 13:08 | XMS_ITS | Clinical Summary ---
Author Organization [employer] Address [address] [facility] 7[address] [place] [address] Care Team Providers Care Supervisor Bleach Plant Name Role Phone Name, Oumar PÉREZ Primary Care Provider [phone] Allergies No known active allergies Medications fluticasone (Flonase) 50 MCG/ACT nasal sprayIndication s:Acute non-recurrent maxillary sinusitis Administer 1 spray into each nostril Once per day. 16 g 2 4 Active ibuprofen 600 MG tablet Take 1 tablet (600 mg) by mouth 3 times daily. 30 tablet 5 Active acetaminophen (Tylenol 8 Hour) 650 MG ER tablet Take 1 tablet (650 mg) by mouth every 8 (eight) hours if needed for mild pain. Do not crush, chew, or split. 30 tablet 5 Active albuterol 108 (90 Base) MCG/ACT inhalerIndicati ons:Cough in adult,Wheezing, Rhonchi at both lung bases Inhale 2 puffs if needed in the morning, at noon, and at bedtime for wheezing or shortness of breath. 18 g 11 5 01/20/20 26 Active predniSONE (Deltasone) 20 MG tablet Take 2 tablets (40 mg) by mouth Once per day for 5 days. 10 tablet 5 01/25/20 25 Active Hospital, Clinic, or Other Facility Administered Medication Ordered Dose Route Frequency Start Date End Date Status albuterol (2.5 MG/3ML) 0.083% nebulizer solution 2.5 mgIndications:Cough in adult,Wheezing,Rhonc hi at both lung bases 2.5 mg NEBULIZATION Once 01/19/2025 01/19/2025 Ended Active Problems Problem Noted Date Diagnosed Date Follow-up exam 12/03/2024 Trismus 12/02/2024 Myofascial pain syndrome 12/02/2024 Dental calculus 04/21/2024 Acute non-recurrent maxillary sinusitis [...] Encounters Date Type Department Care Team Description 01/19/2025 3:45 PM EDT Office Visit [facility] MEDICINE [address] [place] [phone] Oumar Blas MD Cough in adult (Primary Dx); Wheezing; Rhonchi at both lung bases 01/19/2025 Travel 01/16/[address] [facility] MEDICINE [address] [place] [phone] Oumar Blas MD CHARTPREP 01/13/2025 Patient Outreach [facility] CHC MED & PEDS [address] [place] [address] Oumar Blas MD Pre-visit Planning ([facility] unable to reach [facility] ) 01/13/2025 Travel 12/03/2024 3:00 PM EDT Office Visit [facility] ADULT DENTAL [address] [place] [address] Dillon Calles DDS Follow-up exam (Primary Dx) 12/02/2024 2:00 PM EDT Office Visit [facility] ADULT DENTAL [address] [place] [address] Dillon Calles DDS Myofascial pain syndrome (Primary Dx) 10/20/2024 11:00 AM EDT Office Visit [facility] ADULT DENTAL [address] [place] [address] Sheila Resendiz Dental calculus (Primary Dx) from Last 3 Months Immunizations Immunization Administration Dates Next Due Influenza Injectable Quadriv alant Preservative Free IIV4 MDCK 02/06/2023,01/26/2022,01/27/2021,2019 Influenza injectable quadriv alent IIV4 with preservative 01/23/2018 Influenza, seasonal, injecta ble, preservative free 01/23/2024 Pneumococcal Conjugate PCV 20 07/30/2024 Tdap 01/19/2023 Social History Tobacco Use Types [...] Mass Index 42.26 01/19/2025 3:46 PM EDT Plan of Treatment Upcoming Encounters Date Type Department Care Team (Late st Contact Info) Description 01/20/2025 2:00 PM EDT Office Visit [facility] MEDICINE [address] [place] [phone] Name, MD Oumar [address] [place] [phone] Health Maintenance Due Date Last Done Comments CT Colonography 1963 Colonoscopy 1963 Dental X-Ray: Full Mouth 1963 FIT 1963 Sigmoidoscopy 1963 Alcohol/Substance Use Screening 1975 Zoster Vaccines (1 of 2) 08/28/2013 Dental Oral Exam 02/12/2021 08/12/2020 Dental X-Ray: Bitewings 08/13/2021 08/12/2020 RSV Patients and Patients Aged 60 years or older (1 - Risk 60-74 years 1-dose series) 2023 FOBT 12/15/2023 12/14/2022 Depression Screening 08/28/2024 2023, 08/29/19 24 SDOH Screening 11/22/2024 11/23/2023 COVID-19 Vaccine ( season) 2025 04/04/2021, 06/08/2020, 05/11/2020 Influenza Vaccine (#1) 2025 , 02/06/2023, 01/26/2022, Additional history exists Dental Prophylaxis 04/22/2025 10/20/2024, 1 05/15/2021, 08/12/2020, Additional history exists Disability Screening 07/30/2025 07/30/2024 Colorectal Cancer Screening 12/14/2025 FIT DNA/Cologuard 12/14/2025 12/14/2022 Tobacco Screening 01/19/2026 01/19/2025 Lipid Panel 09/27/2028 09/28/2023, 11/29/2022 DTaP/Tdap/Td Vaccines (2 - Td or Tdap) 01/19/2033 01/19/2023 HIV Screening Completed 11/30/2023 Hepatitis C Screening Completed 11/30/2023 Pneumococcal Vaccine: 50+ Years Completed 07/30/2024 HIB Vaccines Aged Out No longer eligi [...] patient's age to complete this topic Meningococcal B Vaccine Aged Out No l onger eligible based on patient's age to complete [...] 01/19/2025 3:49 PM EDT Cough in adult NO CHARGE VISIT Routine 12/03/2024 3:00 PM EDT LIMITED ORAL EVALUATION - PROBLEM FOCUSED Routine 12/02/2024 2:00 PM EDT INTRAORAL - PERIAPICAL EACH ADDITIONAL RADIOGRAPHIC IMAGE Routine 12/02/2024 2:00 PM EDT INTRAORAL - PERIAPICAL FIRST RADIOGRAPHIC IMAGE Routine 12/02/2024 2:00 PM EDT ORAL HYGIENE INSTRUCTIONS Routine 10/20/2024 11:00 AM EDT Dental calculus EMPLOYEE ADULT PROPHYLAXIS Routine 10/20/2024 11:00 AM EDT Dental calculus HEPATITIS C AB W/REFL TO HCV RNA, [...] Recently Relevant to Health Maintenance Results * POCT Rapid Influenza B SALAZAR ID NOW (01/19/2025 3:54 PM EDT) Influenza B Negative Negative, Indeterminate [facility] QC Media Lot # [id number] [facility] Lot# Expiration Date [id number] [facility] Swab 01/19/2025 3:54 PM EDT Oumar Name POINT OF CARE TEST ENTER/EDIT OR DERABLES Final Result Performing Organization Address City/[facility]/ZIP Co de Phone Number [facility] [address] [place] [address] [phone] * POCT Rapid Influenza A SALAZAR ID NOW (01/19/2025 3:54 PM EDT) Pathologist [facility] Influenza A Negative Negative, Indeterminate [facility] QC Media Lot # [id number] [facility] Lot# Expiration Date [id number] [facility] Swab 01/19/2025 3:54 PM EDT us Oumar Blas MD POINT OF CARE TEST ENTER/EDIT OR DERABLES Final Result Performing Organization Address [facility] Co de Phone Number [facility] [address] [place] [phone] * POCT Rapid Covid-19 BinaxNOW (01/19/2025 3:49 PM EDT) [facility] Rapid COVID Ag Negative QC Media Lot # [id number] Lot# Expiration Date [id number] Swab 01/19/2025 3:49 PM EDT us Oumar Blas MD POINT OF CARE TEST ENTER/EDIT OR DERABLES Final Result * Hepatitis C Antibody with Reflex to HCV, RNA, Quantitative, Real-Time PCR (11/30/2023 10:29 AM EDT) [facility] Hepatitis C Antibody Nonreactive Nonreactive [facility] Comment:Antibodies to HCV no t detected; does not exclude early acuteHCV infection. Blood Venous blood specimen / Unknown 11/30/2023 10:29 AM EDT 11/30/2023 1:01 PM EDT us Oumar Blas MD LAB BLOOD ORDERABLES Final Resul t Performing Organization Address [facility] Co de Phone Number [facility] [address] [place] [phone] * HIV-1/2 Antigen and Antibodies, Fourth Generation, with Reflexes (11/30/2023 10:29 AM EDT) Pathologist [facility] HIV AB/AG Nonreactive Nonreactive [facility] Comment:HIV-1 p24 Ag and/or HIV-1/HIV-2 Ab not detected.A test result that is nonreactive does not exclude thepossibility of exposure to or infection with HIV-1 and/orHIV-2. Nonreactive results in this assay for individualswith prior exposure to HIV-1 and/or HIV-2 may be due toantigen and antibody levels that are below the limit ofdetection of this assay.The ImageTag HIV Ag/Ab Combo assay result andsupplemental assay results should be interpreted inconjunction with the patient's clinical presentation,history and other laboratory results. If the results areinconsistent with clinical evidence, additional testing issuggested to confirm the result. Blood Venous blood specimen / Unknown 11/30/2023 10:29 AM EDT 11/30/2023 1:01 PM EDT us Oumar Name LAB BLOOD ORDERABLES Final Resul t [facility] [address] [place] [phone] * (ABNORMAL) Lipid Panel, Standard (09/28/2023 1:15 PM EDT) [facility] Triglycerides 75 <150 mg/dL [facility] Comment:Desirable Triglyceri de: less than 150 mg/dLBorderline High Triglyceride 150-199 mg/dLHigh Triglyceride: 200-499 mg/dLVery High Triglyceride: greater than or equal to 5OO mg/dL Cholesterol 177 <200 mg/dL [facility] Comment:Desirable Cholestero l: less than 200 mg/dLBorderline High Cholesterol: 200-239 mg/dLHigh Cholesterol: greater than 239 mg/dL LDL Cholesterol Calculated 120(H) <100 mg/dL [facility] Comment:Desirable LDL: less than 100 mg/dLNear Optimal/Above Optimal LDL: 110- 129 mg/dLBorderline High LDL: 130-159 mg/dLHigh LDL: 160-189 mg/dLVery High LDL: greater than or equal to 190 mg/dL HDL Cholesterol 42 >40 mg/dL [facility] Comment:Desirable HDL: great er than 40 mg/dL Note: This HDL assay may give artificially low results in patients with liver disease. Blood Venous blood specimen / Unknown 09/28/2023 1:15 PM EDT 09/28/2023 4:07 PM EDT Oumar Blas MD LAB BLOOD ORDERABLES Final Resul t [facility] [address] [place] [phone] * FIT DNA/Cologuard Cancer Screening (12/14/2022) Cologuard Cancer Screen Negative Stool Oumar Blas MD HEALTH MAINTENANCE Final Result from Last 3 Months or Most Recently Relevant to Health Maintenance [place] [address] [place] [address] , [address] [place] [address] Care Teams Supervisor Bleach [employer] Relationship Specialty Start Date End Date Name, MD Oumar [address] [place] [phone] PCP - General Family Medicine 06/18/17
--- OUTSIDE RECORDS SUMMARY | 2025-01-20 13:08 | XMS_ITS | Encounter Summary ---
Author Organization [facility] Address [address] [facility] [address] [place] [address] Care Team Providers Care [employer] Law Clerk Name Role Phone Name, Oumar PÉREZ Primary Care Provider [phone] Encounter Details Date Type Department Care Team (Late st Contact Info) Description 12/26/2022 Abstract [facility] MEDICINE [address] [place] [address] [phone] NameOumar MD [address] [place] [address] [phone] Social History Tobacco Use Types Packs/Day Years [...] Description 01/20/2025 2:00 PM EDT Office Visit [facility] MEDICINE [address] [place] [address] [phone] Name, MD Oumar [address] [place] [address] [phone] documented as of this encounter Visit Diagnoses Not on filedocumented in this encounter Additional Health Concerns Assessment Noted Time PHQ-9 Depression Total Score: 13 023 8:42 AM EDT documented as of this encounter Care Teams [employer] Law Clerk Relationship Specialty Start Date End Date Name, MD Oumar [address] [place] [address] PCP - General Family Medicine 06/18/17 documented as of this encounter
== END 2025-01-20 10:53 | disposition home or self-care (01) ==
LOC: HO.HHCL 10:52
PROVIDERS: PCP Internal Medicine Geriatric Medicine; Visit Provider Internal Medicine Geriatric Medicine
DX: R06.2 Wheezing (principal); R09.89 Other specified symptoms and signs involving the circulatory and respiratory systems; R05.9 Cough, unspecified
CPT/HCPCS: 71046

== ENCOUNTER → 2025-01-20 11:27 | Outpatient (BNV) | payer OTHER, SELFPAY | PROVIDERS: PCP Internal Medicine Geriatric Medicine; Visit Provider Radiology Diagnostic Radiology | DX: R05.9 Cough, unspecified (principal); R06.2 Wheezing; R09.89 Other specified symptoms and signs involving the circulatory and respiratory systems | CPT/HCPCS: 71046 ==

== ENCOUNTER 2025-01-21 11:23 | Outpatient (REF) | payer OTHER, SELFPAY ==
--- OUTSIDE RECORDS SUMMARY | 2025-01-19 15:45 | XMS_ITS | Encounter Summary ---
Author Organization [employer] Address [address] [facility] 7t [place] [address] Care Team Providers Care Computer Patternmaker Name Role Phone Name, Oumar PÉREZ Primary Care Provider [phone] Reason for Visit * Reason Comments Cough Encounter Details Date Type Department Care Team ([facility] st Contact Info) Description 01/19/2025 3:45 PM EDT Office Visit [facility] [address] [place], [place] [phone] Name, MD Oumar [address] [place] [address] Cough in adult (Primary Dx); Wheezing; Rhonchi at both lung bases Social History Tobacco Use Types Packs/Day Years Used Date Smoking Tobacco: Never Passive Smoke Exposure: Never Smokeless Tobacco: Never Tobacco Cessation:Counseling Given: Not Answered Alcohol Use Standard Drinks/Week Comments Yes 0 (1 standard drink = 0.6 oz pur e alcohol) occassional Alcohol Answer Date Recorded How often do you have a drink containing alcohol ? 1 01/20/2025 How many drinks containing a lcohol do you have on a typical day when you are drinking? 0 01/20/2025 How often do you have six or more drinks on one occasion? 0 01/20/2025 Depression Answer Date Recorded Patient Health Questionnaire-9 Score 1 01/20/2025 Patient Health Questionnaire-9 Score 1 01/20/2025 Last PHQ-9: Questionnaire Data Not on file 0 01/20/2025 Housing Stability Answer Date Recorded What is your housing situation today? I do not have housing (Staying with others, in a hotel, in a fdc, living outside on the street, on a beach, in a car, or in a park 01/20/[address] you li ve. Do you have problems with any of the following? None of the above 01/20/2025 Food Insecurity Answer Date Recorded Within the past 12 months, y ou worried that your food would run out before you got money to buy more: Never True 01/20/2025 Within the past 12 months,th e food you bought just didn't last and you didn't have enough money to get more: Never True 01/2025 Transportation Answer Date Recorded In the past 12 months, has l ack of transportation kept you from medical appts, meetings, work or from getting things needed for daily living? No 01/20/2025 Utilities Answer Date Recorded In the past 12 months, has t he electric, gas, oil or water company threatened to shut off services in your home? No 01/20/2025 Depression Answer Date Recorded Patient Health Questionnaire-2 Score 1 01/20/2025 Internet Access Answer Date Recorded Internet Access Q1 No 01/20/2025 Internet Access Q2 I do not want or need it 01/2025 Sex and Gender Information Value Date Recorded [...] then the cough started. He has tried iood-khz-ouabqyt cough remedies without symptomatic improvement. He denies [...] Center 01/20/2025 2:00 PM Oumar Blas MD [facility] documented in this encounter Plan of Treatment Not on file documented as of this encounter Procedures Procedure Name Priority Date/Time Associated Diagnosis Comments XR CHEST 2 VIEWS Routine 01/20/2025 11:4 8 AM EDT Cough in adult Wheezing Rhonchi at both lung bases POCT INFLUENZA B (ID NOW RAPID MOLECULAR) Routine 01/19/2025 3:54 PM EDT Cough in adult POCT INFLUENZA A (ID NOW RAPID MOLECULAR) Routine 01/19/2025 3:54 PM EDT Cough in adult POCT RAPID COVID ANTIGEN Routine 01/19/2025 3:49 PM EDT Cough in adult documented in this encounter Results * XR Chest 2 Views (01/20/2025 11:48 AM EDT) Anatomical Region Laterality Modality Chest Radiographic Teresa ging 01/20/2025 11:4 8 AM EDT Narrative 01/20/2025 1:12 PM EDT [address] [address] XRay Report Signed with Addmarco a Patient: Harmeet Mercado MR#: [id number] : 1965 Acct:[id number] Age/Sex: 59 / M ADM Date: 01/20/25 Loc: [facility] Attending Dr: Oumar Blas MD Ordering Physician: Oumar Blas MD Date of Service: 01/20/25 Procedure(s): XR chest 2V Accession Number(s): [id number] cc: Oumar Blas MD Reason for Exam: one week of cough, wheezing, ronchi ADDENDUM ADDENDUM #1 No acute airspace disease. Probable 1 mm granuloma, right lung. Electronically signed by: Prabhu Ramsay MD 01/20/2025 02:18 PM EDT Addendum Dictated By: Prabhu Ross MD Addendum Signed By: <Electronically signed by Prabhu Ross MD in OV> 01/20/25 1418 Addendum Cosigned By: DD/ /06/1148 TD/TT: 01/20/2502/06/1200 EXAMINATION: XR CHEST CLINICAL INFORMATION: one week of cough, wheezing, ronchi COMPARISON: None available. TECHNIQUE: PA and lateral views FINDINGS: No consolidation, pleural fissure pneumothorax. Questionable 1 mm calcified nodule likely granuloma, right lower hemithorax. Cardiomediastinal silhouette size is normal. Multilevel spondylosis, axial skeleton. XR/XR chest 2V IMPRESSION: No acute airspace disease. Electronically signed by: Prabhu Ramsay MD 01/20/2025 01:09 PM EDT RP Dictated By: Prabhu Leong MD Signed By: <Electronically signed by Prabhu Ross MD in OV> 01/20/25 1309 DD/ 1148 TD/TT: 01/20/25 1200 Heel Sewer: Procedure Note Donotuseinterpreter, Image - 01/20/[address] [address] XRay Report Signed with Addenda Patient: Harmeet MercadoMR#: [id number] : 1965Acct:[id number] Age/Sex: 59 / MADM Date: 01/20/25 Loc: [facility] Attending Dr: Oumar Blas MD Ordering Physician: Oumar Blas MD Date of Service: 01/20/25 Procedure(s): XR chest 2V Accession Number(s): [id number] cc: Oumar Blas MD Reason for Exam: one week of cough, wheezing, ronchi ADDENDUM ADDENDUM #1 No acute airspace disease. Probable 1 mm granuloma, right lung. Electronically signed by: Prabhu Ramsay MD 01/20/2025 02:18 PM EDT RP Addendum Dictated By: Prabhu Ross MD Addendum Signed By: <Electronically signed by Nnamdi Ross MD in OV> 01/20/25 1418 Addendum Cosigned By: DD/ /06/1148 TD/TT: 01/20/2502/06/1200 EXAMINATION: XR CHEST CLINICAL INFORMATION: one week of cough, wheezing, ronchi COMPARISON: None available. TECHNIQUE: PA and lateral views FINDINGS: No consolidation, pleural fissure pneumothorax. Questionable 1 mm calcified nodule likely granuloma, right lower hemithorax. Cardiomediastinal silhouette size is normal. Multilevel spondylosis, axial skeleton. XR/XR chest 2V IMPRESSION: No acute airspace disease. Electronically signed by: Prabhu Ramsay MD 01/20/2025 01:09 PM EDT RP Dictated By: Prabhu Leong MD Signed By: <Electronically signed by Prabhu Ross MDin OV> 01/20/25 1309 DD/ 1148 TD/TT: 01/20/25 1200 Heel Sewer: us Oumar Blas MD IMG XR PROCEDURES Edited Result - Final * POCT Rapid Influenza B SALAZAR ID NOW (01/19/2025 3:54 PM EDT) [facility] Influenza B Negative Negative, Indeterminate [facility] QC Media Lot # [id number] [facility] Lot# Expiration Date 100,826 [facility] Swab 01/19/2025 3:54 PM EDT us Oumar Blas MD POINT OF CARE TEST ENTER/EDIT OR DERABLES Final Result Performing Organization Address City/[facility]/ZIP Co de Phone Number [facility] [address] [place] [phone] * POCT Rapid Influenza A SALAZAR ID NOW (01/19/2025 3:54 PM EDT) [facility] Influenza A Negative Negative, Indeterminate [facility] QC Media Lot # [id number] [facility] Lot# Expiration Date 100,826 [facility] Swab 01/19/2025 3:54 PM EDT us Oumar Blas MD POINT OF CARE TEST ENTER/EDIT OR DERABLES Final Result Performing Organization Address City/[facility] Co de Phone Number [facility] [address] [place] [phone] * POCT Rapid Covid-19 BinaxNOW (01/19/2025 3:49 PM EDT) Pathologist [facility] Rapid COVID Ag Negative QC Media Lot # [id number] Lot# Expiration Date 63,026 Swab 01/19/2025 3:49 PM EDT Oumar Blas MD POINT OF CARE TEST [...] documented as of this encounter Care Teams Computer Patternmaker Relationship Specialty Start Date End Date Name, MD Oumar [address] [place] [address] PCP - General Family Medicine 06/18/17 documented as of this encounter
--- OUTSIDE RECORDS SUMMARY | 2025-01-20 14:00 | XMS_ITS | Encounter Summary ---
Author Organization [employer] Address [address] [facility] [address] [place] [address] Care Team Providers Care Promotions Specialist Name Role Phone Name, Oumar PÉREZ Primary Care Provider [phone] Reason for Visit * Reason Comments Annual Exam Encounter Details Date Type Department Care Team ([facility] st Contact Info) Description 01/20/2025 2:00 PM EDT Office Visit [facility] MEDICINE [address] [place], [place] [phone] Name, MD Oumar [address] [place] [address] PE (physical exam), routine (Primary Dx); Screening for cholesterol level; Cough in adult Social History Tobacco Use Types Packs/Day Years [...] with others, in a hotel, in a senior care, living outside on the street, on a [...] Sign Reading Time Taken Comments Blood Pressure 124/72 01/20/2025 1:58 PM EDT Pulse 84 01/20/2025 1:58 PM EDT Temperature 36.6 C (97.9 F) 01/20/2025 1:58 PM EDT Respiratory Rate 14 01/20/2025 1:58 PM EDT Oxygen Saturation 98% 01/20/2025 1:58 PM EDT Inhaled Oxygen Concentration - - Weight 122 kg (269 lb 12.8 oz) 01/20/2025 1:58 P M EDT Height 170.2 cm (5' 7 ) 01/20/2025 1:58 PM EDT Body Mass Index 42.26 01/20/2025 1:58 PM EDT documented in this encounter Functional Status * Over the past 2 weeks, how often have you been bothered by any of the following problems? Question Answer Date of Assessment Author Patient Health Questionnaire -2 Score 1 01/20/2025 2:27 PM EDT Durga Tariq MA * Little interest or pleasure in doing things Answer Date of Assessment Author Not at all 01/20/2025 2:27 PM DEREKT Mason Tariq MA * Feeling down, depressed, or hopeless Answer Date of Assessment Author Several days 01/20/2025 2:27 PM DEREKT Mason Tariq MA * Trouble falling or staying asleep, or sleeping too much Answer Date of Assessment Author Not at all 01/20/2025 2:27 PM DEREKT Mason Tariq MA * Feeling tired or having little energy Answer Date of Assessment Author Not at all 01/20/2025 2:27 PM DEREKT Mason Tariq MA * Poor appetite or overeating Answer Date of Assessment Author Not at all 01/20/2025 2:27 PM Mason Sanches MA * Feeling bad about yourself - or that you are a failure or have let yourself or your family down Answer Date of Assessment Author Not at all 01/20/2025 2:27 PM Mason Sanches MA * Trouble concentrating on things, such as reading the newspaper or watching television Answer Date of Assessment Author Not at all 01/20/2025 2:27 PM Mason Sanches MA * Moving or speaking so slowly that other people could have noticed? Or the opposite - being so fidgety or restless that you have been moving around a lot more than usual. Answer Date of Assessment Author Not at all 01/20/2025 2:27 PM Mason Sanches MA * Thoughts that you would be better off or hurting yourself in some way Answer Date of Assessment Author Not at all 01/20/2025 2:27 PM Mason Sanches MA * Patient Health Questionnaire-9 Score Answer Date of Assessment Author 1 01/20/2025 2:27 PM Mason Sanches MA * How difficult have these problems made it for you to do your work, take care of things at home, or get along with other people? Answer Date of Assessment Author Somewhat difficult 01/20/2025 2:27 PM EDT Mason Lovett MA * Over the last 2 weeks, how often have you been bothered by any of the following problems? Question Answer Date of Assessment Author Feeling nervous, anxious, or on edge 0 01/20/2025 2:27 PM EDT Durga Tariq MA Not being able to stop or control worrying 0 01/20/2025 2:27 PM EDT Durga Tariq MA Worrying too much about different things 0 01/20/2025 2:27 PM EDT Durga Tariq MA Trouble relaxing 0 01/20/2025 2:27 PM EDT Mason Melgar MA Being so restless that it is hard to sit still 0 01/20/2025 2:27 PM EDT Durga Tariq MA Becoming easily annoyed or irritable 0 01/20/2025 2:27 PM EDT Durga Tariq MA Feeling afraid as if somethi ng awful might happen 0 01/20/2025 2:27 PM EDT Durga Tariq MA DIOR-7 Total Score 0 01/20/2025 2:27 PM EDT Mason Tariq MA documented as of this encounter Progress Notes * Oumar Blas MD - 01/20/2025 2:00 PM EDT Subjective Patient ID: Harmeet Mercado is a 59 y.o. male who presents for Annual Exam. Patient comes for a physical exam. I saw him yesterday as a walk-in for respiratory symptoms that have improved with the use of prednisone and albuterol. We discussed the results of his chest x-ray that was negative for acute pathology. 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 Overall he feels better, no shortness of breath, cough and wheezing have improved. He used first dose of prednisone this morning and he reviewed how to use the albuterol MDI. On review of health maintenance schedule he is up-to-date with Cologuard and PSA. He agreedto go for fasting blood work to check his lipid profile. In the past he was reluctant to use statins for primary prevention. He continues to be physically active at his job. He is in good spirits. Review of Systems Constitutional: Negative for chills, fatigue and fever. HENT: Negative for sore throat. Respiratory: Negative for cough, chest tightness and shortness of breath. Cardiovascular: Negative for chest pain, palpitations and leg swelling. Gastrointestinal: Negative for abdominal pain and blood in stool. Objective Vitals: 01/20/25 1358 BP: 124/72 BP Location: Left arm Patient Position: Sitting BP Cuff Size: Large adult Pulse: 84 Resp: 14 Temp: 97.9 ??F (36.6 ??C) TempSrc: Temporal SpO2: 98% Weight: 269 lb 12.8 oz (122 kg) Height: 5' 7 (1.702 m) Physical Exam Constitutional: Appearance: Normal appearance. Cardiovascular: Rate and Rhythm: Normal rate and regular rhythm. Heart sounds: No murmur heard. Pulmonary: Effort: Pulmonary effort is normal. No respiratory distress. Breath sounds: No wheezing, rhonchi or rales. Abdominal: Palpations: Abdomen is soft. Tenderness: There is no abdominal tenderness. Musculoskeletal: Right lower leg: No edema. Left lower leg: No edema. Neurological: Mental Status: He is alert. Assessment/Plan Diagnoses and all orders for this visit: PE (physical exam), routine Comments: I recomended regular physical activity Avoid sweets, soda and processed foods Check fasting blood work listed below Screening for cholesterol level - Lipid Panel, Standard; Future Cough in adult Comments: Better, continue prednisone and albuterol documented in this encounter Plan of Treatment Not on file documented as of this encounter Procedures Procedure Name Priority Date/Time Associated Diagnosis Comments LIPID PANEL, STANDARD Routine 01/21/2025 11:30 AM EDT Screening for cholesterol level documented in this encounter Results * (ABNORMAL) Lipid Panel, Standard (01/21/2025 11:30 AM EDT) Triglycerides 92 <150 mg/dL [facility] Comment:Desirable Triglyceri de: less than 150 mg/dLBorderline High Triglyceride 150-199 mg/dLHigh Triglyceride: 200-499 mg/dLVery High Triglyceride: greater than or equal to 5OO mg/dL Cholesterol 201(H) <200 mg/dL [facility] Comment:Desirable Cholestero l: less than 200 mg/dLBorderline High Cholesterol: 200-239 mg/dLHigh Cholesterol: greater than 239 mg/dL LDL Cholesterol Calculated 142(H) <100 mg/dL [facility] Comment:Desirable LDL: less than 100 mg/dLNear Optimal/Above Optimal LDL: 110- 129 mg/dLBorderline High LDL: 130-159 mg/dLHigh LDL: 160-189 mg/dLVery High LDL: greater than or equal to 190 mg/dL HDL Cholesterol 41 >40 mg/dL [facility] Comment:Desirable HDL: great er than 40 mg/dL Note: This HDL assay may give artificially low results in patients with liver disease. Blood Venous blood specimen / Unknown 01/21/2025 11:30 AM EDT 01/21/2025 1:47 PM EDT Oumar Blas MD LAB BLOOD ORDERABLES Final Resul t [facility] [address] [place] [phone] documented in this encounter Visit Diagnoses Diagnosis PE (physical exam), routine- Primary Screening for cholesterol level Cough in adult documented in this encounter Additional Health Concerns Assessment Noted Time PHQ-9 Depression Total Score: 1 01/21/20 25 2:27 PM EDT documented as of this encounter Care Teams Promotions Specialist Relationship Specialty Start Date End Date Name, MD Oumar [address] [place] [address] PCP - General Family Medicine 06/18/17 documented as of this encounter
[2025-01-21 14:19] LABS: Cholesterol 201 mg/dL (<200); HDL Cholesterol 41 mg/dL (>40); Triglycerides 92 mg/dL (<150)
--- OUTSIDE RECORDS SUMMARY | 2025-01-21 14:31 | XMS_ITS | Clinical Summary ---
Author Organization [employer] Address [address] [facility] 7t [place] [address] Care Team Providers Care Plc Engineer Name Role Phone Name, Oumar PÉREZ Primary Care Provider [phone] Allergies No known active allergies Medications fluticasone [...] Encounters Date Type Department Care Team Description 01/20/2025 2:00 PM EDT Office Visit [facility] [address] [place] [phone] Oumar Blas MD PE (physical exam), routine (Primary Dx); Screening for cholesterol level; Cough in adult 01/20/2025 Travel 01/19/2025 3:45 PM EDT Office Visit [facility] [address] [place] [address] Oumar Blas MD Cough in adult (Primary Dx); Wheezing; Rhonchi at both lung bases 01/19/2025 Travel 01/16/2025 Telephone [facility] [address] [place] [phone] Oumar Blas MD CHARTPREP 01/13/2025 Patient Outreach [facility] [address] [place], [place] [phone] Oumar Blas MD Pre-visit Planning (SDOH unable to reach [facility] ) 01/13/2025 Travel 12/03/2024 3:00 PM EDT Office Visit [facility] [address] [place] [address] Bolano, Dillon, DDS Follow-up exam (Primary Dx) 12/02/2024 2:00 PM EDT Office Visit [facility] [address] [place] [address] Dillon Calles DDS Myofascial pain syndrome (Primary Dx) from Last 3 Months Immunizations [...] Mass Index 42.26 01/20/2025 1:58 PM EDT Plan of Treatment Health Maintenance Due Date Last Done Comments CT Colonography 1965 Colonoscopy 1965 Dental X-Ray: Full Mouth 1965 FIT 1965 Sigmoidoscopy 1965 Zoster Vaccines (1 of 2) 08/28/2013 Dental Oral Exam 02/12/2021 08/12/2020 Dental X-Ray: Bitewings 08/13/2021 08/12/2020 RSV Patients and Patients Aged 60 years or older (1 - Risk 60-74 years 1-dose series) 2023 FOBT 12/15/2023 12/14/2022 COVID-19 Vaccine ( season) 2025 04/04/2021, 06/08/2020, 05/11/2020 Influenza Vaccine (#1) 2025 , 02/06/2023, 01/26/2022, Additional history exists Dental Prophylaxis 04/22/2025 10/20/2024, 1 05/15/2021, 08/12/2020, Additional history exists Colorectal Cancer Screening 12/14/2025 FIT DNA/Cologuard 12/14/2025 12/14/2022 Alcohol/Substance Use Screening 01/20/2026 01/20/2025 Depression Screening 01/20/2026 01/20/2025, 01/21/20 Disability Screening 01/20/2026 01/20/2025 SDOH Screening 01/20/2026 01/20/2025 Tobacco Screening 01/20/2026 01/20/2025 Lipid Panel 09/27/2028 01/21/2025, 09/11, 11/29/2022 DTaP/Tdap/Td Vaccines (2 - Td or [...] 11:30 AM EDT Screening for cholesterol level XR CHEST 2 VIEWS Routine 01/20/2025 11:4 [...] RADIOGRAPHIC IMAGE Routine 12/02/2024 2:00 PM EDT HEPATITIS C AB W/REFL TO HCV RNA, QN, PCR Routine 11/30/2023 10:29 AM EDT Need for hepatitis C screening test HIV 1/2 ANTIGEN/ANTIBODY, FOURTH GENERATION W/RFL Routine 11/30/2023 10:29 AM EDT Screening for HIV (human immunodeficiency virus) HM FIT DNA/COLOGUARD CANCER SCREENING Routine 12/14/2022 PROPHYLAXIS - ADULT Routine 03/15/2022 1 2:00 AM EDT BITEWINGS - 3 RADIOGRAPHIC IMAGES Routine 08/12/2020 12:00 AM EDT PERIODIC ORAL EVALUATION - ESTABLISHED PATIENT Routine 08/12/2020 12:00 AM EDT from Last 3 Months or Most Recently Relevant to Health Maintenance Results * (ABNORMAL) Lipid Panel, Standard (01/21/2025 11:30 AM EDT) Triglycerides 92 <150 mg/dL [facility] Comment:Desirable Triglyceri de: less than 150 mg/dLBorderline High Triglyceride 150-199 mg/dLHigh Triglyceride: 200-499 mg/dLVery High Triglyceride: greater than or equal to 5OO mg/dL Cholesterol 201(H) <200 mg/dL [facility] Comment:Desirable Cholestero l: less than 200 mg/dLBorderline High Cholesterol: 200-239 mg/dLHigh Cholesterol: greater than 239 mg/dL LDL Cholesterol Calculated 142(H) <100 mg/dL [facility] Comment:Desirable LDL: less than 100 mg/dLNear Optimal/Above Optimal LDL: 110- 129 mg/dLBorderline High LDL: 130-159 mg/dLHigh LDL: 160-189 mg/dLVery High LDL: greater than or equal to 190 mg/dL HDL Cholesterol 41 >40 mg/dL [facility] Comment:Desirable HDL: great er than 40 mg/dL Note: This HDL assay may give artificially low results in patients with liver disease. Blood Venous blood specimen / Unknown 01/21/2025 11:30 AM EDT 01/21/2025 1:47 PM EDT Oumar Blas MD LAB BLOOD ORDERABLES Final Resul t [facility] [address] [place] [phone] * XR Chest 2 Views (01/20/2025 11:48 AM EDT) Anatomical Region Laterality Modality Chest Radiographic Teresa ging 01/20/2025 11:4 8 AM EDT Narrative 01/20/2025 1:12 PM EDT [address] [address] XRay Report Signed with Moon Patient: Harmeet Mercado MR#: [id number] : 1965 Acct:[id number] Age/Sex: 59 / M ADM Date: 01/20/25 Loc: .[facility] Attending Dr: Oumar Blas MD Ordering Physician: Oumar Blas MD Date of Service: 01/20/25 Procedure(s): XR chest 2V Accession Number(s): [id number] cc: Oumar Blas MD Reason for Exam: [...] 01/20/25 1309 DD/ 1148 TD/TT: 01/20/25 1200 Grocery Deliverer: Procedure Note Donotuseinterpreter, Image - 01/20/[address] [address] XRay Report Signed with Addenda Patient: Harmeet Mercado#: [id number] : 1965Acct:[id number] Age/Sex: 59 / MADM Date: 01/20/25 Loc: .[facility] Attending Dr: Oumar Blas MD Ordering Physician: Oumar Blas MD Date of Service: 01/20/25 Procedure(s): XR chest 2V Accession Number(s): [id number] cc: NameOumar MD Reason for Exam: one week of [...] 01/20/25 1309 DD/ 1148 TD/TT: 01/20/25 1200 Grocery Deliverer: us Oumar Blas MD IMG XR PROCEDURES Edited Result - Final * POCT Rapid Influenza B SALAZAR ID NOW (01/19/2025 3:54 PM EDT) Influenza B Negative Negative, Indeterminate [facility] QC Media Lot # [id number] [facility] Lot# Expiration Date [id number] [facility] Swab 01/19/2025 3:54 PM EDT us Oumar Blas MD POINT OF CARE TEST ENTER/EDIT OR DERABLES Final Result Performing Organization Address [facility]/ZIP Co de Phone Number [facility] [address] [place] [phone] * POCT Rapid Influenza A SALAZAR ID NOW (01/19/2025 3:54 PM EDT) Influenza A Negative Negative, Indeterminate [facility] QC Media Lot # [id number] [facility] Lot# Expiration Date [id number] [facility] Swab 01/19/2025 3:54 PM EDT us Oumar Blas MD POINT OF CARE TEST ENTER/EDIT OR DERABLES Final Result Performing Organization Address [facility] Co de Phone Number [facility] [address] [place] [phone] * POCT Rapid Covid-19 BinaxNOW (01/19/2025 3:49 PM EDT) Pathologist [facility] Rapid COVID Ag Negative QC Media Lot # [id number] Lot# Expiration Date [id number] Swab 01/19/2025 3:49 PM EDT us Oumar Blas MD POINT OF CARE TEST ENTER/EDIT OR DERABLES Final Result * Hepatitis C Antibody with Reflex to HCV, RNA, Quantitative, Real-Time PCR (11/30/2023 10:29 AM EDT) Pathologist [facility] Hepatitis C Antibody Nonreactive Nonreactive [facility] Comment:Antibodies to HCV no t detected; does not exclude early acuteHCV infection. Blood Venous blood specimen / Unknown 11/30/2023 10:29 AM EDT 11/30/2023 1:01 PM EDT us Oumar Blas MD LAB BLOOD ORDERABLES Final Resul t Performing Organization Address City/[facility]/ZIP Co de Phone Number [facility] [address] [place] [phone] * HIV-1/2 Antigen and Antibodies, Fourth Generation, with Reflexes (11/30/2023 10:29 AM EDT) HIV AB/AG Nonreactive Nonreactive [facility] Comment:HIV-1 p24 Ag and/or HIV-1/HIV-2 Ab not detected.A test result that is nonreactive does not exclude thepossibility of exposure to or infection with HIV-1 and/orHIV-2. Nonreactive results in this assay for individualswith prior exposure to HIV-1 and/or HIV-2 may be due toantigen and antibody levels that are below the limit ofdetection of this assay.The Pro[employer]ering HIV Ag/Ab Combo assay result andsupplemental assay results should be interpreted inconjunction with the patient's clinical presentation,history and other laboratory results. If the results areinconsistent with clinical evidence, additional testing issuggested to confirm the result. Blood Venous blood specimen / Unknown 11/30/2023 10:29 AM EDT 11/30/2023 1:01 PM EDT us Oumar Blas MD LAB BLOOD ORDERABLES Final Resul t [facility] [address] [place] [phone] * FIT DNA/Cologuard Cancer Screening (12/14/2022) Cologuard Cancer Screen Negative Stool us Oumar Bals MD HEALTH MAINTENANCE Final Result from Last 3 Months or Most Recently Relevant to Health Maintenance Insurance [facility] , [address] [place] [address] Care Teams Plc Engineer Relationship Specialty Start Date End Date Name, MD Oumar [address] [place] [address] PCP - General Family Medicine 06/18/17
--- OUTSIDE RECORDS SUMMARY | 2025-01-21 14:31 | XMS_ITS | Encounter Summary ---
Author Organization [employer] Address [address] [facility] 7t [place] [address] Care Team Providers Care Investment Counselor Name Role Phone Name, Oumar PÉREZ Primary Care Provider [phone] Encounter Details Date Type Department Care Team (Latest Contact Info) Description 01/20/2025 Travel Social History Tobacco Use Types Packs/Day [...] with others, in a hotel, in a custodial, living outside on the street, on a [...] AM EDT documented as of this encounter Functional Status * Over the past 2 weeks, how often have you been bothered by any of the following problems? Question Answer Date of Assessment Author Patient Health Questionnaire -2 Score 1 01/20/2025 2:27 PM EDT Durga Tariq MA * Little interest or pleasure in doing things Answer Date of Assessment Author Not at all 01/20/2025 2:27 PM EDT Mason Tariq MA * Feeling down, depressed, or hopeless Answer Date of Assessment Author Several days 01/20/2025 2:27 PM DEREKT Mason Tariq MA * Trouble falling or staying asleep, or sleeping too much Answer Date of Assessment Author Not at all 01/20/2025 2:27 PM EDT Mason Tariq MA * Feeling tired or having little energy Answer Date of Assessment Author Not at all 01/20/2025 2:27 PM DEREKT Mason Tariq MA * Poor appetite or overeating Answer Date of Assessment Author Not at all 01/20/2025 2:27 PM DEREKT Mason Tariq MA * Feeling bad about yourself - or that you are a failure or have let yourself or your family down Answer Date of Assessment Author Not at all 01/20/2025 2:27 PM EDT Mason Tariq MA * Trouble concentrating on things, such as reading the newspaper or watching television Answer Date of Assessment Author Not at all 01/20/2025 2:27 PM DEREKT Mason Tariq MA * Moving or speaking so slowly that other people could have noticed? Or the opposite - being so fidgety or restless that you have been moving around a lot more than usual. Answer Date of Assessment Author Not at all 01/20/2025 2:27 PM EDT Mason Tariq MA * Thoughts that you would be better off or hurting yourself in some way Answer Date of Assessment Author Not at all 01/20/2025 2:27 PM DEREKT Mason Tariq MA * Patient Health Questionnaire-9 Score Answer Date of Assessment Author 1 01/20/2025 2:27 PM DEREKT Mason Tariq MA * How difficult have these problems [...] or on edge 0 01/20/2025 2:27 PM DEREKT Durga Tariq MA Not being able to stop or control worrying 0 01/20/2025 2:27 PM DEREKT Durga Tariq MA Worrying too much about different things 0 01/20/2025 2:27 PM DEREKT Durga Tariq MA Trouble relaxing 0 01/20/2025 2:27 PM EDT Mason Melgar MA Being so restless that it is hard to sit still 0 01/20/2025 2:27 PM DEREKT Durga Tariq MA Becoming easily annoyed or irritable 0 01/20/2025 2:27 PM Durga Sanches MA Feeling afraid as if somethi ng awful might happen 0 01/20/2025 2:27 PM EDT Durga Tariq MA DIOR-7 Total Score 0 01/20/2025 2:27 PM EDT Mason Tariq MA documented as of this encounter Plan of Treatment Not on file documented as of this encounter Visit Diagnoses Not on filedocumented in this encounter Additional Health Concerns Assessment Noted Time PHQ-9 Depression Total Score: 1 01/21/20 25 2:27 PM EDT documented as of this encounter Care Teams Investment Counselor Relationship Specialty Start Date End Date Name, MD Oumar [address] [place] [address] PCP - General Family Medicine 06/18/17 documented as of this encounter
--- OUTSIDE RECORDS SUMMARY | 2025-01-21 14:31 | XMS_ITS | Encounter Summary ---
Author Organization [employer] [facility] Address [address] [facility] 7t [place] [address] Care Team Providers Care Family Support Specialist Name Role Phone Name, Oumar PÉREZ Primary Care Provider [phone] Encounter Details Date Type Department Care Team (Latest Contact Info) Description 08/12/2020 Abstract [facility] CONVERSION[facility] Dental, Provider, DDS Social History [...] on filedocumented in this encounter Care Teams Family Support Specialist Relationship Specialty Start Date End Date Name, MD Oumar [address] [place] [address] PCP - General Family Medicine 06/18/17 documented as of this encounter
--- OUTSIDE RECORDS SUMMARY | 2025-01-21 14:31 | XMS_ITS | Encounter Summary ---
Author Organization [employer] Address [address] [facility] [address] [place] [address] Care Team Providers Care Highway Traffic Control Technician Name Role Phone Name, Oumar PÉREZ Primary Care Provider [phone] Encounter Details Date Type Department Care Team [...] documented as of this encounter Care Teams Highway Traffic Control Technician Relationship Specialty Start Date End Date Name, MD Oumar [address] [place] [address] PCP - General Family Medicine 06/18/17 documented as of this encounter
--- OUTSIDE RECORDS SUMMARY | 2025-01-21 14:31 | XMS_ITS | Encounter Summary ---
Author Organization [employer] [facility] Address [address] [facility] [address]t [place] [address] Care Team Providers Care Liqu[employer] Stores [employer]cies Supervisor Name Role Phone Name, Oumar PÉREZ Primary Care Provider [phone] Encounter Details Date Type Department Care Team (Late st Contact Info) Description 12/26/2022 Abstract [facility] [address] [place], [place] [phone] Name, MD Oumar [address] [place], [place] [phone] Social History Tobacco Use Types Packs/Day Years [...] Noted Time PHQ-9 Depression Total Score: 13 11/29/ 023 8:42 AM EDT documented as of this encounter Care Teams [employer] Stores [employer]gencies Supervisor Relationship Specialty Start Date End Date Name, MD Oumar [address] [place], [place] [phone] PCP - General Family Medicine 06/18/17 documented as of this encounter
--- OUTSIDE RECORDS SUMMARY | 2025-01-21 14:31 | XMS_ITS | Encounter Summary ---
Author Organization [employer] Address [address] [facility] [address] [place] [address] Care Team Providers Care Electric Meter Tester Shop Name Role Phone Name, Oumar PÉREZ Primary Care Provider [phone] Reason for Visit * Reason Onset Date Comments CHARTPREP 01/16/2025 Encounter Details Date Type Department Care Team ([facility] st Contact Info) Description 01/16/2025 Telephone [facility] [address] [place], [place] [phone] Name, MD Oumar [address] [place] [address] CHARTPREP Social History Tobacco Use Types Packs/Day [...] documented as of this encounter Care Teams Electric Meter Tester Shop Relationship Specialty Start Date End Date Name, MD Oumar [address] [place] [address] PCP - General Family Medicine 06/18/17 documented as of this encounter
== END 2025-01-21 11:24 | disposition home or self-care (01) ==
LOC: HO.HHCL 11:23
PROVIDERS: PCP Internal Medicine Geriatric Medicine; Visit Provider Internal Medicine Geriatric Medicine
DX: Z13.220 Encounter for screening for lipoid disorders (principal); Z13.6 Encounter for screening for cardiovascular disorders
CPT/HCPCS: 36415; 80061